=== PATIENT | female | born 1945 | race Caucasian/White ===

== ENCOUNTER 2018-01-02 06:38 | Observation (INO) | payer BC ==
--- NOTE | 2017-12-26 23:14 | HP ---
CC: Dr. Souza; Dr. Lor Ocampo * ADMISSION HISTORY AND PHYSICAL: DATE OF ADMISSION: 01/02/18 ATTENDING SURGEON: Dr. Aisha Penny.* (DICTATED BY PARAMJIT DAVIS) CHIEF COMPLAINT: Left breast cancer. 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 This was first noted in September. She brought it to the attention of her primary care provider. She underwent mammogram and ultrasonography, which did not reveal any abnormality. She is status post aspiration of the breast cyst about 10 years ago, but does not recall even which site it occurred on. Her family history is positive for breast cancer in her mother diagnosed around age 85. No additional family history of breast or ovarian cancer. The remainder of her breast and hormonal history is as outlined in her chart record. She was seen in the office by Dr. Penny, on 12/03/17, at which time was noted a palpable left breast mass in the 6 o'clock position, described as hard, oval, irregular at the edges, but mobile. This is located 2 cm from the nipple and by my exam today, it measures approximately 2 x [address] Penny's exam, no visible or palpable cervical or supraclavicular lymphadenopathy. She was noted to have shotty bilateral axillary lymph nodes. A biopsy was performed by pathology. The biopsy was positive for ductal carcinoma, which was ER and UT positive and HER-2/bart negative. Dr. Penny has discussed with her the indications for surgery, the risks, benefits, and alternatives. She would like to proceed as scheduled with left mastectomy with sentinel lymph node biopsy. PAST MEDICAL HISTORY: The patient does not have any current active medical problems. She states that her blood pressure is sometimes elevated in the medical office, but is normal when checked at home. PAST SURGICAL HISTORY: Her only previous surgery is dental extractions. CURRENT MEDICATIONS: She takes no prescription or lbyu-sdv-swaokau medications on a regular basis. She does take: 1. Calcium 500 mg once daily. 2. Multivitamin once daily. 3. Vitamin E 400 International Units once daily. DRUG ALLERGIES: None known. FAMILY HISTORY: Negative for anesthesia problems, bleeding, or clotting disorders. SOCIAL HISTORY: The patient is . 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 She denies use of tobacco, alcohol, or recreational drugs. REVIEW OF SYSTEMS: General: No recent constitutional symptoms or acute illnesses. Eyes: Possibly early cataracts, otherwise no recent changes. Ears, Nose, and Throat: No problems reported. Cardiovascular: No chest pain, palpitations, history of heart murmur. Office hypertension as noted above. Respiratory: No asthma, chronic cough, or shortness of breath. GI: No problems reported. Last colonoscopy in 2013 with recommended 10-year follow and no interval problems reported. : No problems reported. ORACLE FUSION CONSULTANT: Most recent pelvic exam and Pap smear approximately 2 years ago with no interval problems reported. See also above per HPI. Endocrine: No diabetes or thyroid dysfunction. Other system review is negative. PHYSICAL EXAMINATION GENERAL: Well-nourished, well-developed female, in no acute distress. VITAL SIGNS: Height 5 feet 5 inches, weight 127 pounds, blood pressure 120/70, pulse 66, respirations 16. HEENT: Pupils are equal, round, reactive. EOMs intact. No conjunctival pallor. Oropharynx: Teeth in good repair. No intraoral lesions. NECK: No cervical or supraclavicular lymphadenopathy. No palpable thyromegaly or masses. LUNGS: Clear to auscultation. No rales or wheezes. HEART: Regular rate and rhythm. No murmur appreciated. Occasional irregular beat. BREASTS: My exam today was limited to left breast where there is noted between the 5 and 6 o'clock positions, approximately 2 cm from the nipple a firm, mobile , well- circumscribed mass, which is nontender. I did not reexamine her axillae. ABDOMEN: Soft and nontender to palpation. No palpable masses or organomegaly. BACK: No spinous process or CVA tenderness. GENITALIA: Not done. RECTAL: Not done. EXTREMITIES: No edema. NEUROLOGICAL: Grossly intact. SKIN: Warm and dry. No suspicious rashes or lesions noted. IMPRESSION: Left breast cancer. PLAN: Left mastectomy with sentinel lymph node biopsy. PARAMJIT DAVIS [id number]/[facility] #: [id number] MTDStacy
[~2018-01-02 06:38] MED LIST: Buffered Lidocaine 0.9% SYRIN* 5 ML/SYR SYRINGE INTRADERM ONE; Dexamethasone IV* 4 MG/ML 1 ML (4 MG) IV SLOW PU ONE; Famotidine IV* 10 MG/ML 2 ML (20 mg) IV ONE; Ondansetron ODT TAB* 4 MG PO ONE
--- OUTSIDE RECORDS SUMMARY | 2018-01-02 06:41 | XMS REPORT ---
:1945 External Reference #:[id number] Author Organization [employer] Address [address] [facility] [address] [place] [address] Phone [phone] Care Team Providers Name Role Phone Alfredo Souza MD Primary Care Physician Unavailable Payers Type Date Identification Numbers Payment Provider Subscriber Commercial Policy Number: [id number] [facility] Karen Oneil PayID: [id number] [address] [place] [address] Problems Description No Information Social History Type Date Description Comments Smoking Patient has never smoked Allergies, Adverse Reactions, Alerts Date Description Reaction Status Severity Comments 12/01/2017 NKDA active Medications Medication Date Status Form Strength Qnty SIG Indications Ordering Provider Calcium Active 500mg Unknown 00 twice a day Vitamin E Active Capsules 400Unit 1 by Unknown 00 mouth every day Multi-Day Active Tablets 1 by Unknown Vitamins With 00 mouth Iron every day Vital Signs Date Vital Result Comment 12/03/2017 Height 65 inches 5'5" Weight 127.00 lb Heart Rate 76 /min BP Systolic 146 mmHg BP Diastolic 86 mmHg Respiratory Rate 16 /min Body Temperature 98.6 F BMI (Body Mass Index) 21.1 kg/m2 Results Description No Information Procedures Date CPT Code Description Status 02/06/2017 Mammogram Completed 01/19/2016 Mammogram Completed 01/13/2015 Mammogram Completed 01/11/2014 Mammogram Completed 01/01/2013 Mammogram Completed 11/13/2009 Mammogram Completed Plan of Care 12/03/2017 - Aisha Penny MDN63.20 Unspecified lump in the left breast, unspecified quadrantNew Labs:Cytology Non-GynSurgical PathologyFollow up:TBA after FNA results
--- OUTSIDE RECORDS SUMMARY | 2018-01-02 06:41 | XMS REPORT ---
:1945 External Reference #:[id number] Author Organization [employer] Address [address] [facility] [address] [place] [address] Phone [phone] Care Team Providers Name Role Phone Alfredo Souza MD Primary Care Physician Unavailable Payers Type Date Identification Numbers Payment Provider Subscriber Commercial Policy Number: [id number] [facility] Esthela Oneil PayID: [id number] [address] [place] [address] Problems Description No Information Social History Type Date Description Comments Smoking Patient has never smoked Allergies, Adverse Reactions, Alerts Date Description Reaction Status Severity Comments 12/01/2017 NKDA active Medications Medication Date Status Form Strength Qnty SIG Indications Ordering Provider Calcium Active 500mg Unknown 00 once a day Vitamin E Active Capsules 400Unit 1 by Unknown 00 mouth every day Multi-Day Active Tablets 1 by Unknown Vitamins With 00 mouth Iron every day Vital Signs Date Vital Result Comment 12/26/2017 Height 65 inches 5'5" Weight 127.00 lb Heart Rate 66 /min BP Systolic 120 mmHg BP Diastolic 70 mmHg Respiratory Rate 16 /min Body Temperature 98.3 F BMI (Body Mass Index) 21.1 kg/m2 12/03/2017 Height 65 inches 5'5" Weight 127.00 lb Heart Rate 76 /min BP Systolic 146 mmHg BP Diastolic 86 mmHg Respiratory Rate 16 /min Body Temperature 98.6 F BMI (Body Mass Index) 21.1 kg/m2 Results Test Date Test Result H/L Range Note Laboratory test finding 12/03/2017 Cytology Non-Electronic Data Interchange Specialist SEE RESULT BELOW 1 Surgical Pathology <pending> 1 SEE RESULT BELOW Name: ESTHELA ONEIL : [address]: Aisha Penny MD Acct: [id number] Unit: [id number] AGE: 72 Location: LAB Re12/03/17 SEX: F Status: REG REF SPEC: [id number] KENYON: 12/03/17-[address]: Aisha Penny MD REQ: [id number] RECD: 12/03/17-1224 STATUS: AVILA FULTON DR: Tino Souza MD _ ORDERED: FNA INTERP RPT, FNA BY PALP, LEVEL 4, CYTO ADEQ-1ST P, IMMUNO-FIRST , IMM IMMUNO-QUANT/3 Addendum: The following histochemical stains are performed with appropriate controls on formalin fixed cell block material. ER positive, 3+, greater than 90% of tumor cells OK positive, 1?2 plus, 20% of tumor HER-2 negative (0+) CD68 positive in background inflammatory elements only. E-Cadherin strong positive These findings support the previously rendered diagnosis of ductal adenocarcinoma of breast. Addendum Signed (signature on file) Tino Leigh MD 1048 FINAL DIAGNOSIS Breast, left, at 4 o?clock, fine needle aspiration by palpation: -- Malignant- ductal adenocarcinoma. Comment: The aspirate smear and formalin fixed cell block material demonstrate identical findings both demonstrate classic features of low and intermediate grade ductal adenocarcinoma including abundant intact single epithelial elements with low to intermediate grade nuclear features including nuclear pleomorphism, irregular nuclear contours and CONTINUED ON NEXT PAGE DEPARTMENT OF PATHOLOGY, [address] [place] [address] Tino Leigh M.D. Director [facility] # [id number] RUN DATE: 12/04/17 [facility] LAB LIVE PAGE 2 Patient: ESTHELA ONEIL [id number] (Continued) SPECIMEN COMMENTS (Continued) visible nucleoli. A few fragments of benign-appearing ductal epithelium as well as background lymphoid and histiocytic inflammatory elements are seen. Additional studies including hormone receptor markers are pending on formalin fixed cell block material and will be reported in an addendum. Dr. Lei has reviewed this case and concurs. Dr. Penny notified of these results on 11/03/2017 at approximately 1:30 PM The procedure was explained to and understood by the patient. Signed consent was obtained and a time out procedure was performed at the bedside to verify patient identity and biopsy site. Fine needle aspiration biopsy was performed times 2 with a 25 gauge needle on approximate 1 cm mobile left breast mass at 4:00, 2 cm from the areolar rim. Adequacy was assessed by fast stain technique. The procedure was tolerated well without complications. A cell block was prepared in the evaluation of this specimen. Smears and cell block reveal similar findings. BREAST LEFT - LEFT BREAST FINE NEEDLE ASPIRATION BY PALPATION CLINICAL HISTORY 1 cm mobile left breast nodule at 4 o?clock 2 cm from areola. GROSS DESCRIPTION Fine needle aspiration by palpation x 2 with 1 Alcohol fixed slide(s) and needle rinse in formalin for cell block. Signed by and Reported on: Tino Leigh MD 04/14 1522 END OF REPORT DEPARTMENT OF PATHOLOGY, [address] [place] [address] Tino Leigh M.D. Director [facility] # [id number] Procedures Date CPT Code Description Status 12/02/2017 Mammogram Completed 02/06/2017 Mammogram Completed 01/19/2016 Mammogram Completed 01/13/2015 Mammogram Completed 01/11/2014 Mammogram Completed 01/01/2013 Mammogram Completed 11/13/2009 Mammogram Completed Encounters Type Date Location Provider CPT E/M Dx Office Visit 12/03/2017 [facility] [place] [address] N63.20 10:30a [facility] Plan of Care Future Appointment(s):01/02/2018 12:00 pm - Ning Pascual NP at [facility]01/02/2018 12:00 pm - Aisha Penny MD at [facility]
[2018-01-02] MEDS ORDERED: Lidocaine 2.5%/Prilocain 2.5%* 5 GM TUBE ONE (06:46)
--- NOTE | 2018-01-02 09:24 | RAD ---
INDICATION: LEFT breast cancer 6:00 position. December 02, 2017 mammogram and ultrasound reviewed. PROCEDURE: The risks and benefits of the procedure were explained to the patient. Written informed consent was obtained. 0.312 mCi total of filtered sulfur colloid were injected intradermal in 4 divided doses along the areolar margin flanking the 6:00 position tumor site. Spot images?were?obtained?of?the?thorax with the ipsilateral arm over the head. Solitary ipsilateral axillary sentinal node marked on the skin utilizing a point source. IMPRESSION: Successful lymphoscintigraphy LEFT breast.
[2018-01-02] MEDS ORDERED: Famotidine IV* 10 MG/ML 2 ML (20 mg) ONE (11:34)
[2018-01-02] MEDS ORDERED: Ondansetron ODT TAB* 4 MG ONE (11:34)
[2018-01-02] MEDS ORDERED: Heparin VIAL(*) 5000 UNITS/ML VIAL (FIVE THOUSAND) ONE (11:34)
[2018-01-02] MEDS ORDERED: Dexamethasone IV* 4 MG/ML 1 ML (4 MG) ONE (11:34)
[2018-01-02] MEDS ORDERED: fentaNYL* 50 MCG/ML 5 ML VIAL (250 MCG VIAL) ONE (13:40)
[2018-01-02] MEDS ORDERED: Midazolam* 1 MG/ML 5 ML VIAL (5 MG) ONE (13:40)
[2018-01-02] MEDS ORDERED: Propofol* 10 MG/ML 20 ML BTL IV PUSH ONE (13:42)
[2018-01-02] MEDS ORDERED: Lidocaine 2% PF * 5 ML VIAL ONE (13:42)
[2018-01-02] MEDS ORDERED: Methylene Blue 0.5 %* 50 MG/10 ML AMP IV ONE (14:13)
[2018-01-02] MEDS ORDERED: Bupivacaine 0.25% SDV* 30 ML ONE (14:14)
[2018-01-02] MEDS ORDERED: ceFAZolin 2 GM PREMIX (*) 2 GM/50 ML BAG IVPB ONE (14:32)
[2018-01-02] MEDS ORDERED: fentaNYL* 50 MCG/ML 2 ML VIAL (100 MCG VIAL) ONE ×2 (15:05→15:46)
[2018-01-02] MEDS ORDERED: Metoprolol Tartrate IV* 1 MG/ML 5 ML VIAL ONE (15:57)
[2018-01-02] MEDS ORDERED: Ondansetron 40 MG VIAL* 2 MG/ML 20 ML VIAL IV PRN (16:30)
[2018-01-02] MEDS ORDERED: Ibuprofen TAB* 600 MG PO PRN (16:30)
[2018-01-02] MEDS ORDERED: HYDROcodone/ACETAMIN 5-325 MG* 1 TAB PO PRN (16:30)
[2018-01-02] MEDS ORDERED: Acetaminophen TAB* 325 MG PO PRN (16:30)
[2018-01-02] MEDS ORDERED: HYDROmorphone INJ* 2 MG/ML CARPUJECT SYRINGE IV PRN (16:30)
[2018-01-02] MEDS ORDERED: Ondansetron INJ* 2 MG/ML VIAL IV PRN (16:47)
[2018-01-02] MEDS ORDERED: fentaNYL* 50 MCG/ML 2 ML VIAL (100 MCG VIAL) IV PRN (16:47)
[2018-01-02] MEDS ORDERED: HYDROmorphone INJ* 1 MG/ML CARPUJECT SYRINGE IV PRN (16:47)
[2018-01-02] MEDS ORDERED: DiMENhydriNATE IV* 50 MG/ML VIAL IV PUSH PRN (16:47)
[2018-01-02] MEDS ORDERED: Naloxone* 0.4 MG/ML 1 ML VIAL IV PRN (16:47)
[2018-01-03] MEDS ORDERED: Heparin VIAL(*) 5000 UNITS/ML VIAL (FIVE THOUSAND) SUBCUT SCH (06:00)
[2018-01-03 07:41] VITALS: BP 155/87
--- NOTE | 2018-01-03 08:47 | PN ---
Progress Note - Progress Note Date of Service: 01/03/18 Note: Surgery Ms. Oneil denies complaints. She is comfortable managing the drain. Vital Signs 01/02/18 01/02/18 01/02/18 16:32 16:35 16:40 Temperature 97.7 F Pulse Rate 94 83 85 Respiratory 12 18 12 Rate Blood Pressure 143/93 152/95 152/90 (mmHg) O2 Sat by Pulse 99 99 99 Oximetry 01/02/18 01/02/18 01/02/18 16:45 17:00 17:15 Temperature Pulse Rate 81 Respiratory 15 16 20 Rate Blood Pressure 158/98 (mmHg) O2 Sat by Pulse 99 96 96 Oximetry 01/02/18 01/02/18 01/02/18 17:22 17:30 17:36 Temperature Pulse Rate 67 60 Respiratory 17 19 16 Rate Blood Pressure 152/95 155/96 155/96 (mmHg) O2 Sat by Pulse 98 98 94 Oximetry 01/02/18 01/02/18 01/02/18 18:05 18:06 18:45 Temperature 97.3 F 97.7 F Pulse Rate 60 55 Respiratory 16 16 18 Rate Blood Pressure 158/89 146/89 (mmHg) O2 Sat by Pulse 100 100 Oximetry 01/02/18 01/02/18 01/02/18 19:44 21:42 21:44 Temperature 97.6 F 97.8 F Pulse Rate 60 74 Respiratory 15 16 18 Rate Blood Pressure 156/88 143/79 (mmHg) O2 Sat by Pulse 99 99 Oximetry 01/02/18 01/03/18 01/03/18 23:44 00:00 04:56 Temperature 98.6 F Pulse Rate 57 Respiratory 16 Rate Blood Pressure 136/74 (mmHg) O2 Sat by Pulse 100 100 100 Oximetry 01/03/18 01/03/18 04:57 07:15 Temperature 98.2 F 98.0 F Pulse Rate 89 81 Respiratory 16 16 Rate Blood Pressure 151/89 155/87 (mmHg) O2 Sat by Pulse 99 100 Oximetry Mastectomy site: clean, dry, flaps viable. DAVY: serosanguinous drainage. Intake & Output 01/02/18 01/03/18 01/03/18 22:59 06:59 14:59 Intake Total 2130 500 Output Total 1050 1080 Balance 1080 -580 Intake: IV Fluids 1550 LR 1500 NS 50ML, Cefazolin 2G 50 Oral 580 500 Output: DAVY #1 100 80 Urine 950 1000 A/P: POD#1 s/p mastectomy; doing well. Can go home with JP. Ash
--- NOTE | 2018-01-03 12:26 | OP ---
CC: [facility]; Alfredo Souza MD * DATE OF OPERATION: 01/02/18 - ROOM #[id number] DATE OF : [birth year] SURGEON: Aisha Penny MD ASSISTANTS: Ning Pascual NP, and PARAMJIT Smith student. PRE-OP DIAGNOSIS: Left breast cancer. POST-OP DIAGNOSIS: Left breast cancer. OPERATIVE PROCEDURE: Left mastectomy and sentinel lymph node biopsy. INDICATIONS: Ms. Oneil is a 72-year-old woman recently diagnosed with breast cancer who has opted to have a mastectomy and sentinel node. On the morning of surgery, she underwent sentinel lymph node localization without difficulty. She was then brought to the operating room and placed on the OR table in a supine position and given general anesthesia. DESCRIPTION OF PROCEDURE: The left breast and axilla were prepped and draped in the usual sterile fashion. An incision was made along the superior breast encompassing the nipple areolar complex in a curvilinear fashion and subcutaneous tissue was divided with electrocautery. Flaps were developed medially to the sternum, superiorly to the clavicle, and laterally to the latissimus dorsi muscle. Hemostasis was achieved with electrocautery. Then, an inferior incision was made encompassing the nipple areolar complex and the mass and subcutaneous tissue was divided again with electrocautery. Flaps were developed medially to the sternum, inferiorly to the recuts muscle, and laterally to the latissimus dorsi muscle. The breast was then elevated off the chest wall using electrocautery. Once it was removed, it was handed off as a specimen with the usual horn. Hemostasis was assured and then attention was turned to identify the sentinel node using a navigator. A sentinel node was identified fairly promptly and had elevated counts to a level of around 1500. Ex vivo counts were only around 1000 and this node was removed by sharp dissection dividing blood and lymphatic vessels that approached it between clips , so search was made for a second sentinel node. Initially, a second node was identified with counts around 700; however, when that was removed, it had no ex vivo count, so this was identified as a nonsentinel node. Finally, a third sentinel node was found with initial in situ counts around 900. It was excised in the usual fashion and ex vivo counts were comparable. It was then handed off as sentinel node #2. The wound was irrigated with saline. Hemostasis was assured with electrocautery and then closure was accomplished. This was done after placing a DAVY drain through a stab wound in the anterior-anterior axillary line after infiltrating with local anesthetic. The 2-0 and 3-0 Vicryl were used to approximate the subcutaneous tissue; however, it should be mentioned that it was recognized that some additional tissue was preventing the the skin from lying flat in the superomedial portion of the flap, so this was excised and handed off with the breast specimen, identified as separate tissue within the container and its location identified. Then, additional skin was taken from 2 places on the incision, so as to create a flatter contour of the closure. Closure was accomplished with 2-0 and 3-0 Vicryl to reapproximate the subcutaneous tissue and the skin was closed with 4-0 Vicryl in a subcuticular fashion. Steri-Strips and a dry fluffy dressing were applied. The DAVY drain was secured to the chest wall with a 3-0 Prolene stitch. All sponge and instrument counts were correct. The patient tolerated the procedure well and was transferred to Recovery in a stable condition. [id number]/[facility] #: [id number] [facility] CENTERStacy
--- NOTE | 2018-01-03 12:43 | DS ---
DISCHARGE SUMMARY: DATE OF ADMISSION: 01/02/18 DATE OF DISCHARGE: 01/03/18 ADMISSION DIAGNOSIS: Left breast cancer. DISCHARGE DIAGNOSIS: Left breast cancer. PROCEDURES DURING HOSPITALIZATION: Included left mastectomy and sentinel lymph node biopsy done on the date of admission. HOSPITAL COURSE: Ms. Oneil is a 72-year-old woman with breast cancer. Please see admission history and physical for details of findings at the time of admission. She underwent surgery and postoperatively has been doing well with no problems. Her incision on the postop day 1 showed no issues and she is considered stable for discharge. She will be discharged to home with a drain in place and instructions to follow up as an outpatient. [id number]/[facility] #: [id number] DAVIS
== END 2018-01-03 10:00 | disposition home or self-care (01) ==
LOC: AA 06:38 → INTOOBSV 06:38 → SSU 17:51
PROVIDERS: ADMIT Surgery; ATTEND Surgery
PROC: 0HBU0ZZ Excision of Left Breast, Open Approach (ICD-10-PCS; 2018-01-02)
PROC: 0HBU3ZX Excision of Left Breast, Percutaneous Approach, Diagnostic (ICD-10-PCS; principal; 2018-01-02 12:15)
DX: C50.912 Malignant neoplasm of unspecified site of left female breast (principal)
CPT/HCPCS: 78195; 88305; 88307; 88342; 88360; A9270-GY; A9541; G0378; J0690; J1100; J1644; J2250; J2704; J3010; J3490

== ENCOUNTER 2018-11-17 07:30 | Day surgery (SDC) | payer BC ==
[~2018-11-17 07:30] MED LIST changes: +Acetaminophen TAB* 325 MG PO PRN; -Buffered Lidocaine 0.9% SYRIN* 5 ML/SYR SYRINGE INTRADERM ONE; +Buffered Lidocaine 1% SYRIN* 1 ML/SYRINGE INTRADERM ONE; -Dexamethasone IV* 4 MG/ML 1 ML (4 MG) IV SLOW PU ONE; -Famotidine IV* 10 MG/ML 2 ML (20 mg) IV ONE; -Ondansetron ODT TAB* 4 MG PO ONE
[2018-11-17] MEDS ORDERED: Midazolam* 1 MG/ML 2 ML VIAL (2 MG) ONE (08:41)
[2018-11-17] MEDS ORDERED: Propofol* 10 MG/ML 20 ML BTL ONE (08:43)
[2018-11-17] MEDS ORDERED: Lidocaine 2% PF * 5 ML VIAL ONE (08:43)
[2018-11-17 09:20] VITALS: BP 142/85
--- NOTE | 2018-11-17 14:43 | OP ---
OPERATIVE REPORT: DATE OF OPERATION: 11/17/18 DATE OF : [birth year] SURGEON: Joe Drew MD CLINICAL GENETICIST: None. PRE-OP DIAGNOSIS: Cataract, left eye. POST-OP DIAGNOSIS: Cataract, left eye. OPERATIVE PROCEDURE: Phacoemulsification and cataract extraction with posterior chamber multifocal i ntraocular lens implant. COMPLICATIONS: None. BLOOD LOSS: None. ANESTHESIA: Topical with intravenous sedation. OPERATIVE FINDINGS: The patient was brought to the operating room and received a drop of tetracaine to the left eye. She was given intravenous sedation. Her left eye was prepped and draped in the usu al sterile fashion for ophthalmic surgery. Speculum was placed in the left eye. A paracentesis was c reated at the 5 o'clock position and 0.1 cc of 1% preservative-free lidocaine was injected to the ant erior chamber followed by DisCoVisc. The eye was digitally stabilized while a 2.75 mm keratome was u sed to create a triplanar clear corneal incision at the 3 o'clock position. A continuous curvilinear capsulorrhexis was created a using a cystotome and Utrata forceps. BSS on a cannula was to hydrodis sect the lens from the capsule. Phacoemulsification was performed in a fyifkz-bng-gshowul technique to create 4 fragments, which were removed. Residual cortical material was removed with irrigation an d aspiration. ProVisc was used to inflate the capsular bag. Intraoperative tonometer was employed to show the pressure was appropriate. The eye was lubricated with balance saline solution. The ORA wa s employed to help guide the lens choice. An [id number] 11.0 diopter lens was folded into its cartridge and inserted into the eye. Viscoelastic was removed using irrigation and aspiration. BSS on a cannu la was used to hydrate the corneal stroma and seal the wound. At the end of the case, the pupil was round. The lens was center and stable. The eye pressure appeared normal and the wound was water tig ht. The speculum was removed and topical Maxitrol ointment was placed on the surface of the eye. Th e eye was closed, patched and shielded and the patient was sent to the recovery room in stable condit ion with postoperative instructions and followup appointment given. [id number]/[facility] #: [id number]
[2018-11-17] MEDS ORDERED: Cyclopentolate 1% OPTH.SOL* 2 ML BTL ONE (15:41)
[2018-11-17] MEDS ORDERED: Ketorolac 0.5% OPHTH (NF) 0.5 % 5 ML BTL ONE (15:41)
[2018-11-17] MEDS ORDERED: Lidocaine 1%* 5 ML VIAL ONE (15:41)
[2018-11-17] MEDS ORDERED: Phenylephrine OPHTH SOL 2.5%* 2 ML ONE (15:41)
[2018-11-17] MEDS ORDERED: Tetracaine 0.5% OPTH.SOL 4 ML* 1 DROP BTL ONE (15:41)
[2018-11-17] MEDS ORDERED: Tropicamide 1% OPTH.SOL* BTL ONE (15:41)
[2018-11-17] MEDS ORDERED: Neomycin/Polymy/Dex OPHTH.OIN* 3.5 GM ONE (15:41)
== END 2018-11-17 09:29 | disposition home or self-care (01) ==
LOC: OREAST 07:30
PROVIDERS: ATTEND Ophthalmology
DX: H25.12 Age-related nuclear cataract, left eye (principal); I10 Essential (primary) hypertension; Z85.3 Personal history of malignant neoplasm of breast; R94.31 Abnormal electrocardiogram [ECG] [EKG]
CPT/HCPCS: A9270-GY; J2250; J2704; V2788

== ENCOUNTER 2019-01-05 08:32 | Day surgery (SDC) | payer BC ==
[2019-01-05] MEDS ORDERED: Midazolam* 1 MG/ML 2 ML VIAL (2 MG) ONE (09:53)
[2019-01-05] MEDS ORDERED: Neomycin/Polymy/Dex OPHTH.OIN* 3.5 GM ONE (11:45)
[2019-01-05] MEDS ORDERED: Phenylephrine OPHTH SOL 2.5%* 2 ML ONE (11:45)
[2019-01-05] MEDS ORDERED: Tropicamide 1% OPTH.SOL* BTL ONE (11:45)
[2019-01-05] MEDS ORDERED: Tetracaine 0.5% OPTH.SOL 4 ML* 1 DROP BTL ONE (11:45)
[2019-01-05] MEDS ORDERED: Lidocaine 1%* 5 ML VIAL ONE (11:45)
[2019-01-05] MEDS ORDERED: Cyclopentolate 1% OPTH.SOL* 2 ML BTL ONE (11:45)
[2019-01-05] MEDS ORDERED: Ketorolac 0.5% OPHTH (NF) 0.5 % 5 ML BTL ONE (11:46)
[2019-01-05 12:09] VITALS: BP 125/89
--- NOTE | 2019-01-05 15:01 | OP ---
DATE OF OPERATION: [facility] DATE OF : 49 SURGEON: Dr. Joe Drew. RAILS DEVELOPER: None. ANESTHESIA: Topical with intravenous sedation. PRE-OP DIAGNOSIS: Cataract, right eye. POST-OP DIAGNOSIS: Cataract, right eye. OPERATIVE PROCEDURE: Phacoemulsification and cataract extraction with posterior chamber multifocal intraocular lens implant, right eye. COMPLICATIONS: None. BLOOD LOSS: None. DESCRIPTION OF PROCEDURE: The patient was brought to the operating room and received intravenous sedation. A drop of tetracaine was placed in her right eye. The patient was prepped and draped in the usual sterile fashion for ophthalmic surgery. Attention was directed to the right eye where a speculum was placed. A paracentesis was created at the 11 o'clock position and 0.1 cc of 1% preservative- free lidocaine was injected into the anterior chamber followed by DisCoVisc. The eye was digitally stabilized while a 2.75 mm keratome was used to create a triplanar clear corneal incision at the 9 o'clock position. A continuous curvilinear capsulorrhexis was created with a cystotome and Utrata forceps. BSS on a cannula was used to hydrodissect the lens from the capsule. Phacoemulsification was performed in a aowhzh-nkp-lztkrlb technique to create 4 fragments which were removed. Residual cortical material was removed with irrigation and aspiration. The capsular bag was polished. Provisc was used to inflate the capsular bag. The intraoperative tonometer was used to check the eye pressure. The surface of the eye was irrigated with balance saline solution. The ORA instrument was employed. The lens choice was guided by the ORA as well as preoperative measurements. An [id number] 13.5 diopter lens was folded and inserted into the capsular bag. Irrigation and aspiration was performed to remove viscoelastic from the eye. BSS on a cannula was used to hydrate the corneal stroma and seal the wound. At the end of the case, the pupil was round. The lens was centered and stable. The eye pressure appeared normal and the wound was watertight. The speculum was removed and topical Maxitrol ointment was placed on the surface of the eye. The eye was closed, patched and shielded and the patient was sent to the recovery room in stable condition with postoperative instructions and followup appointment given. [id number]/[facility] #: [id number] [facility]
== END 2019-01-05 11:16 | disposition home or self-care (01) ==
LOC: OREAST 08:32
PROVIDERS: ATTEND Ophthalmology
DX: H25.11 Age-related nuclear cataract, right eye (principal); Z85.3 Personal history of malignant neoplasm of breast
CPT/HCPCS: A9270-GY; J2250; V2788